=== PATIENT | male | born 1985 | race Caucasian/White ===

== ENCOUNTER 2022-01-15 11:12 | Emergency (ER) | payer MEDICAID ==
[~2022-01-15] VITALS: Ht 180.3 cm; Wt 172.0 kg
[2022-01-15] MEDS ORDERED: CEFTRIAXONE SODIUM 1 G/VIAL IM ONE (14:00)
[2022-01-15] MEDS ORDERED: CEPH500C2 MT (14:08)
[2022-01-15] MEDS ORDERED: SULF1TAB48 MT (14:08)
[2022-01-15 14:35] VITALS: BP 147/85
== END 2022-01-15 14:36 | disposition home or self-care (01) ==
LOC: ER 11:12
DX: L03.115 Cellulitis of right lower limb (principal); E11.9 Type 2 diabetes mellitus without complications; F17.210 Nicotine dependence, cigarettes, uncomplicated
CPT/HCPCS: 96372; 99283; J0696

== ENCOUNTER 2022-01-18 15:18 | Emergency (ER) | payer MEDICAID ==
[~2022-01-18] VITALS: Ht 180.3 cm; Wt 200.0 kg
[~2022-01-18 15:18] MED LIST: CEPH500C2 MT; SULF1TAB48 MT
[2022-01-18 15:21] VITALS: BP 142/86
[2022-01-18] MEDS ORDERED: MUPI1OIN4 TP (18:42)
== END 2022-01-18 19:00 | disposition home or self-care (01) ==
LOC: ER 15:18
DX: Z48.00 Encounter for change or removal of nonsurgical wound dressing (principal)
CPT/HCPCS: 99283

== ENCOUNTER 2022-03-24 10:03 | Emergency (ER) | payer MEDICAID ==
[~2022-03-24] VITALS: Ht 180.3 cm; Wt 172.0 kg
[~2022-03-24 10:03] MED LIST changes: +MUPI1OIN4 TP
[2022-03-24 10:10] VITALS: BP 161/92
== END 2022-03-24 13:55 | disposition home or self-care (01) ==
LOC: ER 11:49
DX: S30.1XXA Contusion of abdominal wall, initial encounter (principal); E11.9 Type 2 diabetes mellitus without complications; Z79.4 Long term (current) use of insulin; X58.XXXA Exposure to other specified factors, initial encounter; Y93.89 Activity, other specified; Y92.018 Other place in single-family (private) house as the place of occurrence of the external cause
CPT/HCPCS: 99281

== ENCOUNTER 2022-04-15 15:57 | Emergency (ER) | payer MEDICAID ==
[~2022-04-15] VITALS: Ht 180.3 cm; Wt 173.0 kg
[2022-04-15] MEDS ORDERED: TETRACAINE 0.5% OPHTH DROPS 4ML BOTHEYE ONE (21:15)
[2022-04-15] MEDS ORDERED: FLUORESCEIN SODIUM 1MG/STRIP BOTHEYE ONE (21:15)
[2022-04-15] MEDS ORDERED: ACETAMINOPHEN 325MG TABLET PO ONE (21:30)
[2022-04-15] MEDS ORDERED: ACET-2708 MT (22:08)
[2022-04-15 22:52] VITALS: BP 138/74
[2022-04-15] MEDS ORDERED: METF-414 MT (23:07)
== END 2022-04-15 22:54 | disposition home or self-care (01) ==
LOC: ER 15:57
DX: H11.32 Conjunctival hemorrhage, left eye (principal); J02.9 Acute pharyngitis, unspecified; I10 Essential (primary) hypertension; F32.9 Major depressive disorder, single episode, unspecified; E11.9 Type 2 diabetes mellitus without complications; Z20.822 Contact with and (suspected) exposure to COVID-19
CPT/HCPCS: 82962; 87070; 87426; 87430; 99284; C9803

== ENCOUNTER 2022-09-12 13:50 | Inpatient (IN) | payer MEDICAID ==
[~2022-09-12] VITALS: Ht 180.3 cm; Wt 182.3 kg
[~2022-09-12 13:50] MED LIST changes: +ACET-2708 MT; +METF-414 MT
[2022-09-12] MEDS ORDERED: ACETAMINOPHEN 325MG TABLET PO STA (21:57)
[2022-09-12] MEDS ORDERED: VANCOMYCIN 1.25GM PMX (XELLIA) 250 ML IV SCH (22:00)
[2022-09-12] MEDS ORDERED: AMPICILLIN SOD/SULBACTAM NA 3 G in SODIUM CHLORIDE 0.9% 100 ML IV SCH (22:00)
[2022-09-12] MEDS ORDERED: SODIUM CHLORIDE 0.9% 1,000 ML IV ONE (22:00)
[2022-09-12 23:15] LABS: BASOPHILS % 0.5 % (0.0-2.0); HEMOGLOBIN. 16.3 g/dL (14.0-18.0); MEAN PLATELET VOLUME 7.6 fl (7.4-10.4); RED CELL DISTRIBUTION WIDTH 14.3 % (11.6-14.6)
[2022-09-12 23:17] LABS: EOSINOPHILS % 3.4 % (0.0-5.0); HEMATOCRIT. 47.9 % (42.0-52.0); LYMPHOCYTES % 15.3 % (20.0-50.0); MEAN CORPUSCULAR HEMOGLOBIN 32.1 pg (28.0-32.0); MEAN CORPUSCULAR VOLUME 94.5 fL (80.0-94.0); MONOCYTES % 8.3 % (2.0-8.0); NEUTROPHILS % 72.5 % (40.0-76.0); PLATELET 360 x1000/uL (130-400); RED BLOOD CELL COUNT 5.07 mill/uL (4.7-6.1)
[2022-09-12 23:25] LABS: CHLORIDE 101 mEq/L (98-107)
[2022-09-13] MEDS ORDERED: MAGNESIUM/ALUMINUM HYDROXIDE/SIMETHICONE 30ML UDC PO PRN (01:30)
[2022-09-13] MEDS ORDERED: VANCOMYCIN 1G PREMIX 200 ML IV SCH (01:30)
[2022-09-13] MEDS ORDERED: DOCUSATE SODIUM 100MG CAPSULE PO PRN (01:30)
[2022-09-13] MEDS ORDERED: DEXTROSE 50% WATER 50ML SYRINGE IV PRN (01:30)
[2022-09-13] MEDS ORDERED: IPRATROPIUM/ALBUTEROL 0.5-3(2.5)MG/3ML NEB NEB PRN (01:30)
[2022-09-13] MEDS ORDERED: DIPHENHYDRAMINE 25MG CAPSULE PO PRN (01:30)
[2022-09-13] MEDS ORDERED: ONDANSETRON HCL 4MG/2ML INJ IV PRN (01:30)
[2022-09-13] MEDS ORDERED: ACETAMINOPHEN 325MG TABLET PO PRN ×2 (01:30)
[2022-09-13] MEDS ORDERED: CLONIDINE 0.1MG TABLET PO PRN (01:30)
[2022-09-13] MEDS ORDERED: IOHEXOL-300 100 ML BOTTLE ONE (01:50)
[2022-09-13] MEDS ORDERED: ALBUTEROL (0.083%) 2.5MG/3ML NEB HHN PRN (02:00)
[2022-09-13] MEDS ORDERED: IPRATROPIUM BROMIDE (0.02%) 0.5MG/2.5ML NEB HHN PRN (02:00)
[2022-09-13] MEDS ORDERED: CEFEPIME 2,000 MG in DEXT 5% WATER 100 ML IV SCH (03:30)
[2022-09-13 05:20] LABS: BASOPHILS % 0.4 % (0.0-2.0); HEMATOCRIT. 45.5 % (42.0-52.0); HEMOGLOBIN. 15.6 g/dL (14.0-18.0); LYMPHOCYTES % 15.5 % (20.0-50.0); MEAN CORPUSCULAR HEMOGLOBIN 32.3 pg (28.0-32.0); MEAN CORPUSCULAR VOLUME 94.2 fL (80.0-94.0); MEAN PLATELET VOLUME 7.5 fl (7.4-10.4); MONOCYTES % 8.6 % (2.0-8.0); NEUTROPHILS % 71.5 % (40.0-76.0); PLATELET 350 x1000/uL (130-400); RED BLOOD CELL COUNT 4.83 mill/uL (4.7-6.1)
[2022-09-13 05:30] LABS: CHLORIDE 101 mEq/L (98-107)
[2022-09-13 05:47] LABS: HDL CHOLESTEROL 34 mg/dL (40-59); LDL CHOLESTEROL 90 mg/dL (5-100); T4 FREE 1.09 ng/dL (0.76-1.46)
[2022-09-13] MEDS ORDERED: VANCOMYCIN 1.25GM PMX (XELLIA) 250 ML IV SCH (06:00)
[2022-09-13 08:00] VITALS: BP 116/71
[2022-09-13] MEDS: BLOOD SUGAR DIAGNOSTIC STRIP TEST SCH ×4 (08:57→21:00)
[2022-09-13] MEDS: INSULIN LISPRO 100 UNITS/ML SUBCUT SCH ×4 (09:34→21:00)
[2022-09-13] MEDS: FLUOXETINE HCL 10 MG CAPSULE PO SCH (09:35)
[2022-09-13] MEDS: PANTOPRAZOLE SODIUM 40 MG/VIAL IV SCH (09:35)
[2022-09-13] MEDS ORDERED: ENOXAPARIN 40MG/0.4ML SYR SUBCUT SCH (10:00)
[2022-09-13 11:07] VITALS: BP 116/71
[2022-09-13 11:30] VITALS: BP 116/71
[2022-09-13 11:50] LABS: PHOSPHORUS 4.3 mg/dL (2.5-4.9)
[2022-09-13] MEDS: ENOXAPARIN 40MG/0.4ML SYR SUBCUT SCH (12:30)
[2022-09-13 12:40] LABS: FOLIC ACID (FOLATE) SERUM >20 ng/mL ng/mL (>5.38); VITAMIN B12 SERUM 778 pg/mL (211-911)
[2022-09-13] MEDS: CEFEPIME 2,000 MG in DEXT 5% WATER 100 ML IV SCH ×2 (14:00→22:06)
[2022-09-13] MEDS: VANCOMYCIN 1.25GM PMX (XELLIA) 250 ML IV SCH ×2 (14:00→22:57)
[2022-09-13 16:00] VITALS: BP 110/68
[2022-09-13 20:00] VITALS: BP 91/48
[2022-09-14] VITALS (7 sets, daily range): BP systolic 112–136; BP diastolic 60–71
[2022-09-14] MEDS: ENOXAPARIN 40MG/0.4ML SYR SUBCUT SCH ×2 (00:32→11:46)
[2022-09-14] MEDS: CEFEPIME 2,000 MG in DEXT 5% WATER 100 ML IV SCH ×3 (05:40→23:49)
[2022-09-14 06:10] LABS: BASOPHILS % 0.6 % (0.0-2.0); HEMATOCRIT. 45.8 % (42.0-52.0); HEMOGLOBIN. 15.6 g/dL (14.0-18.0); LYMPHOCYTES % 16.8 % (20.0-50.0); MEAN CORPUSCULAR HEMOGLOBIN 32.3 pg (28.0-32.0); MEAN CORPUSCULAR VOLUME 94.7 fL (80.0-94.0); MEAN PLATELET VOLUME 7.7 fl (7.4-10.4); MONOCYTES % 7.4 % (2.0-8.0); NEUTROPHILS % 71.2 % (40.0-76.0); PLATELET 353 x1000/uL (130-400); RED BLOOD CELL COUNT 4.84 mill/uL (4.7-6.1)
[2022-09-14 06:24] LABS: CHLORIDE 101 mEq/L (98-107)
[2022-09-14] MEDS: VANCOMYCIN 1.25GM PMX (XELLIA) 250 ML IV SCH ×3 (06:31→21:32)
[2022-09-14 06:39] LABS: VANCOMYCIN TROUGH 15.5 ug/mL (5.0-10.0)
[2022-09-14] MEDS: BLOOD SUGAR DIAGNOSTIC STRIP TEST SCH ×4 (07:32→21:40)
[2022-09-14] MEDS: INSULIN LISPRO 100 UNITS/ML SUBCUT SCH ×4 (08:10→21:40)
[2022-09-14] MEDS: PANTOPRAZOLE SODIUM 40 MG/VIAL IV SCH (08:11)
[2022-09-14] MEDS: FLUOXETINE HCL 10 MG CAPSULE PO SCH (08:11)
[2022-09-15] VITALS: BP 120/75
[2022-09-15 04:00] VITALS: BP 107/52
[2022-09-15] MEDS: CEFEPIME 2,000 MG in DEXT 5% WATER 100 ML IV SCH ×3 (05:37→21:10)
[2022-09-15] MEDS: VANCOMYCIN 1.25GM PMX (XELLIA) 250 ML IV SCH ×3 (06:14→22:24)
[2022-09-15] MEDS: BLOOD SUGAR DIAGNOSTIC STRIP TEST SCH ×4 (06:25→21:09)
[2022-09-15] MEDS: INSULIN LISPRO 100 UNITS/ML SUBCUT SCH ×3 (07:50→21:00)
[2022-09-15 08:00] VITALS: BP 139/71
[2022-09-15] MEDS: FLUOXETINE HCL 10 MG CAPSULE PO SCH (08:33)
[2022-09-15] MEDS: FAMOTIDINE 20MG TABLET PO SCH ×2 (08:33→20:52)
[2022-09-15 12:00] VITALS: BP 117/77
[2022-09-15] MEDS: ENOXAPARIN 40MG/0.4ML SYR SUBCUT SCH ×3 (12:26→23:35)
[2022-09-15 16:00] VITALS: BP 128/70
[2022-09-15 17:39] LABS: BASOPHILS % 0.8 % (0.0-2.0); EOSINOPHILS % 4.9 % (0.0-5.0); HEMATOCRIT. 44.5 % (42.0-52.0); HEMOGLOBIN. 15.3 g/dL (14.0-18.0); LYMPHOCYTES % 19.1 % (20.0-50.0); MEAN CORPUSCULAR HEMOGLOBIN 32.3 pg (28.0-32.0); MEAN CORPUSCULAR VOLUME 93.8 fL (80.0-94.0); MEAN PLATELET VOLUME 7.6 fl (7.4-10.4); MONOCYTES % 7.7 % (2.0-8.0); NEUTROPHILS % 67.5 % (40.0-76.0); PLATELET 363 x1000/uL (130-400); RED BLOOD CELL COUNT 4.74 mill/uL (4.7-6.1); RED CELL DISTRIBUTION WIDTH 13.8 % (11.6-14.6)
[2022-09-15 17:55] LABS: CHLORIDE 100 mEq/L (98-107)
[2022-09-15 18:03] LABS: PHOSPHORUS 2.4 mg/dL (2.5-4.9)
[2022-09-15 20:00] VITALS: BP 118/73
[2022-09-16] VITALS: BP 118/69
[2022-09-16 04:00] VITALS: BP 128/70
[2022-09-16] MEDS: CEFEPIME 2,000 MG in DEXT 5% WATER 100 ML IV SCH ×2 (05:11→15:02)
[2022-09-16] MEDS: VANCOMYCIN 1.25GM PMX (XELLIA) 250 ML IV SCH ×2 (06:22→15:02)
[2022-09-16] MEDS: BLOOD SUGAR DIAGNOSTIC STRIP TEST SCH ×2 (06:26→12:20)
[2022-09-16 07:54] LABS: BASOPHILS % 0.7 % (0.0-2.0); EOSINOPHILS % 4.5 % (0.0-5.0); HEMATOCRIT. 45.4 % (42.0-52.0); HEMOGLOBIN. 15.2 g/dL (14.0-18.0); LYMPHOCYTES % 19.4 % (20.0-50.0); MEAN CORPUSCULAR HEMOGLOBIN 31.5 pg (28.0-32.0); MEAN CORPUSCULAR VOLUME 93.8 fL (80.0-94.0); MEAN PLATELET VOLUME 7.3 fl (7.4-10.4); MONOCYTES % 9.1 % (2.0-8.0); NEUTROPHILS % 66.3 % (40.0-76.0); PLATELET 362 x1000/uL (130-400); RED BLOOD CELL COUNT 4.84 mill/uL (4.7-6.1); RED CELL DISTRIBUTION WIDTH 14.1 % (11.6-14.6)
[2022-09-16] MEDS: FAMOTIDINE 20MG TABLET PO SCH (08:18)
[2022-09-16] MEDS: FLUOXETINE HCL 10 MG CAPSULE PO SCH (08:18)
[2022-09-16] MEDS: INSULIN LISPRO 100 UNITS/ML SUBCUT SCH ×2 (08:41→13:48)
[2022-09-16 08:45] LABS: CHLORIDE 102 mEq/L (98-107)
[2022-09-16 08:55] LABS: PHOSPHORUS 3.1 mg/dL (2.5-4.9)
[2022-09-16] MEDS: ENOXAPARIN 40MG/0.4ML SYR SUBCUT SCH (13:28)
[2022-09-16] MEDS ORDERED: SULF1TAB48 MT (15:01)
[2022-09-16] MEDS ORDERED: AMOX250S70 PO (15:03)
[2022-09-16 15:44] VITALS: BP 138/86
== END 2022-09-16 16:35 | disposition home or self-care (01) | DRG 720 ==
LOC: ER 13:50 → MICUSO 09-13 01:28 → 6EST 09-13 11:02
PROVIDERS: ADMIT Internal Medicine; ATTEND Internal Medicine
DX: A41.9 Sepsis, unspecified organism (principal); J96.00 Acute respiratory failure, unspecified whether with hypoxia or hypercapnia; E44.1 Mild protein-calorie malnutrition; Z68.43 Body mass index [BMI] 50.0-59.9, adult; E11.9 Type 2 diabetes mellitus without complications; D75.89 Other specified diseases of blood and blood-forming organs; E78.5 Hyperlipidemia, unspecified; L03.211 Cellulitis of face; F32.A Depression, unspecified; E66.01 Morbid (severe) obesity due to excess calories; F17.210 Nicotine dependence, cigarettes, uncomplicated; Z20.822 Contact with and (suspected) exposure to COVID-19; Z79.84 Long term (current) use of oral hypoglycemic drugs; Z79.4 Long term (current) use of insulin
CPT/HCPCS: 36415; 70486; 70487; 71045; 80048; 80053; 80061; 80202; 82607; 82746; 82962; 83036; 83540; 83550; 83605; 83735; 84100; 84145; 84439; 84443; 85025; 85379; 87070; 87077; 87186; 87426; 93970; 99285; C9113; C9803; J0295; J0692; J1650; J1815; J3370; J7030; J7050; J7060; Q9967

== ENCOUNTER 2024-07-20 10:10 | Emergency (ER) | payer MEDICAID ==
[~2024-07-20] VITALS: Ht 177.8 cm; Wt 146.5 kg
[~2024-07-20 10:10] MED LIST changes: -ACET-2708 MT; +AMOX250S70 PO; -CEPH500C2 MT; -MUPI1OIN4 TP
[2024-07-20 10:17] VITALS: TEMP 98.2; O2SAT 95
[2024-07-20] MEDS ORDERED: LIDOCAINE HCL 1% 20ML VIAL INFIL ONE (11:15)
[2024-07-20] MEDS ORDERED: BO1 TP (11:37)
[2024-07-20] MEDS ORDERED: ACET-2708 MT (11:37)
[2024-07-20] MEDS ORDERED: CEPH250T MT (11:37)
[2024-07-20 12:24] VITALS: BP 110/74; PULSE 92; RESP 16; O2SAT 98
== END 2024-07-20 12:25 | disposition home or self-care (01) ==
LOC: ER 11:54
DX: L02.01 Cutaneous abscess of face (principal); E11.9 Type 2 diabetes mellitus without complications; F32.A Depression, unspecified; Z79.899 Other long term (current) drug therapy
CPT/HCPCS: 10060; 99283; J3490; Z7610 ×4